=== PATIENT | male | born 1950 | race Caucasian/White ===

== ENCOUNTER → 2017-01-23 | Outpatient (CLI) | payer OTHER ==
--- NOTE | 2017-01-23 08:36 | US ---
EXAMINATION TYPE: US liver DATE OF EXAM: 01/23/2017 COMPARISON: Previous study dated 12/06/2010. CLINICAL HISTORY: R94.5 ABN Function Of Liver. No symptoms, large body habitus EXAM MEASUREMENTS: Liver Length: 21.2 cm Gallbladder Wall: 0.2 cm CBD: 0.7 cm Right Kidney: 11.5 x 6.3 x 5.8 cm Pancreas: not seen due to bowel gas Liver: enlarged and difficult to penetrate Gallbladder: wnl Evidence for sonographic Moon's sign: no CBD: upper limits of normal Right Kidney: wnl The pancreas is obscured. The liver is enlarged measuring 21 cm. It is echogenic and likely fatty infiltrated. The gallbladder is normal without cholelithiasis. The gallbladder wall measures 2 mm. The distal comm on hepatic duct measures 7 mm. This is upper limits of normal for this age group. There is no sonogra phic Moon's sign. The right kidney is normal. IMPRESSION: HEPATOMEGALY AND FATTY INFILTRATION OF THE LIVER.
== END | disposition home or self-care (01) ==
LOC: RADUSWWP 08:00
PROVIDERS: ATTEND Family Medicine
DX: R16.0 Hepatomegaly, not elsewhere classified (principal); K76.0 Fatty (change of) liver, not elsewhere classified
CPT/HCPCS: 76705

== ENCOUNTER → 2017-02-19 | Outpatient (CLI) | payer MEDICARE, BC | END | disposition home or self-care (01) | LOC: LABWHC1 09:30 | PROVIDERS: ATTEND Internal Medicine Interventional Cardiology | DX: I48.91 Unspecified atrial fibrillation (principal); Z79.899 Other long term (current) drug therapy | CPT/HCPCS: 36415; 84075; 84439; 84443; 84450; 84460 ==

== ENCOUNTER → 2017-03-19 | Outpatient (CLI) | payer MEDICARE, BC | END | disposition home or self-care (01) | LOC: CPPFTMAIN 13:08 | PROVIDERS: ATTEND Internal Medicine Interventional Cardiology | DX: Z79.899 Other long term (current) drug therapy (principal) | CPT/HCPCS: 94060; 94726; 94729 ==

== ENCOUNTER → 2019-02-15 | Outpatient (CLI) | payer MEDICARE ==
--- NOTE | 2019-02-15 17:52 | CONS ---
CONSULTATION REASON FOR CONSULTATION: Sleep apnea. This is a very pleasant 68-year-old male patient who was diagnosed having obstructive sleep apnea more than 10 years ago. His diagnosis was done through [facility]. He wants to establish himself with our [facility]. The patient was diagnosed having MONTY more than 10 years ago and currently is using a CPAP which is at the pressure of 12 cm of water. He has a ResMed AirSense unit which is set at a pressure of 12. He is also utilizing a Mirage Quattro full-face mask, medium size. He has no specific complaints. He has been very compliant with the CPAP unit. He has been wearing his CPAP every night. No snoring while on the CPAP machine. No apneas while on the CPAP machine. He goes to bed around 10 p.m., wakes up at 6 a.m. in the morning. He feels refreshed during the day and there are no major hypersomnia or sleepiness symptoms. He sleeps on his side. He occasionally takes a nap or two during the day. He drinks 3 glasses of caffeinated beverages on a daily basis. His weight has been stable, according to him. No sleep paralysis. No hallucinations. No cataplexy. Based on the compliance data on the machine, the patient has been using his CPAP machine every night without any major difficulties. His compliancy for more than 4 hours is 100%. Leak is 23 L/minute. AHI is down to 2.1 and the patient has been averaging around 7.8 hours of CPAP use per night. PAST MEDICAL HISTORY: 1. Obesity. 2. Obstructive sleep apnea. 3. Chronic atrial fibrillation. 4. Hyperlipidemia. 5. Coronary artery disease with previous coronary stenting. 6. BPH. 7. Diabetes mellitus, type 2. 8. Hypertension. SURGICAL HISTORY: Surgical history includes: 1. Left knee replacement in 2012. 2. Right knee cartilage repair in 1967. 3. Stapedectomy, both ears, in 1989. 4. Hand surgery, both hands, in 2009 and 2011. 5. Cardiac catheterization and stenting in 2000. 6. Umbilical hernia repair in 1989. 7. Colonoscopy in February of 2017. OUTPATIENT MEDICATION LIST: Outpatient medication list includes: 1. Metformin 1 gram twice a day. 2. Omeprazole 40 mg p.o. daily. 3. Lotrel 5/20 one tablet a day. 4. Metoprolol 100 mg p.o. daily. 5. Hytrin 5 mg p.o. b.i.d. 6. Pravastatin 20 mg p.o. daily. 7. Pioglitazone 15 mg p.o. daily. 8. Coumadin 10 mg on a daily basis. 9. Lantus 8 units daily. 10.Humalog per scale. SOCIAL HISTORY: The patient is a nonsmoker. No history of alcoholism. No history of IV drugs. FAMILY HISTORY: Positive for diabetes mellitus and hyperlipidemia and hypertension in parents. REVIEW OF SYSTEMS: Fourteen-point review of systems was done. Positive findings are all mentioned above in the history of present illness. Of significance is the absence of any nocturia. No grinding. No sleepwalking. No anxiety or panic attacks. No palpitations. No chest pain. No heartburn or nausea or vomiting or aerophagia or flatus. No chest pain, angina or palpitations. No cough or sputum production. No shortness of breath. No restlessness in the lower extremities. No sleepwalking or sleeptalking. No anxiety. No depression. No difficulty with memory or concentration. PHYSICAL EXAMINATION: VITAL SIGNS: BP is 120/77, pulse 76, respirations 16, temperature 98.1, saturation 95% on room air. Weight is 282. Height is 6 feet 0 inches. Neck size is 17-3/4 inches. [place] score is 16. BMI 38.2. GENERAL APPEARANCE: Calm, comfortable. HEAD: Atraumatic, normocephalic. NECK: Supple. There is no JVD. No goiter or neck mass. Mallampati class IV. LUNGS: Clear to auscultation. HEART: Heart sounds are irregular rhythm. Normal S1, S2. No S3, S4. No murmurs. ABDOMEN: Obese, soft, nontender. No organomegaly. No direct tenderness, rebound tenderness or guarding. EXTREMITIES: Trace edema. There is no cyanosis or clubbing. NEUROLOGIC: Alert and oriented x3. No focal neurological deficits. PSYCHIATRIC: There is no anxiety or depression. SKIN: Negative for any wounds or ulceration. IMPRESSION: 1. Obstructive sleep apnea. Currently on CPAP at a pressure of 12 with excellent clinical response and compliance. Original study was done at [facility]. Will receive the original polysomnogram to assess the presence and severity of his underlying obstructive sleep apnea. 2. Obesity. Current BMI 38.2. 3. Chronic atrial fibrillation. 4. Hyperlipidemia. 5. Coronary artery disease with previous coronary stenting. 6. Benign prostatic hypertrophy. 7. Diabetes mellitus, type 2. 8. Hypertension. PLAN: 1. Keep the CPAP pressure at the same level of pressure of 12 cm of water. 2. Offer this patient a DreamWear [id number]-[id number] full-face mask, medium size. 3. Renew his CPAP supplies. The patient is interested in moving from [place] to another [facility] which [place], and we will facilitate that. 4. Encourage weight loss. 5. Implement good sleep hygiene measures. Will continue to follow and see him on a yearly basis, earlier if needed. MMODL / IJN: [id number] /
== END ==
LOC: SLEEP 14:13
PROVIDERS: ATTEND Internal Medicine Critical Care Medicine
DX: G47.33 Obstructive sleep apnea (adult) (pediatric) (principal); E66.9 Obesity, unspecified; I48.2 Chronic atrial fibrillation; E78.5 Hyperlipidemia, unspecified; I25.10 Atherosclerotic heart disease of native coronary artery without angina pectoris; N40.0 Benign prostatic hyperplasia without lower urinary tract symptoms; E11.9 Type 2 diabetes mellitus without complications; I10 Essential (primary) hypertension; Z68.38 Body mass index [BMI] 38.0-38.9, adult; Z95.5 Presence of coronary angioplasty implant and graft; Z99.89 Dependence on other enabling machines and devices; Z79.899 Other long term (current) drug therapy; Z79.4 Long term (current) use of insulin; Z79.01 Long term (current) use of anticoagulants
CPT/HCPCS: 99211

== ENCOUNTER 2020-03-15 06:02 | Day surgery (SDC) | payer MEDICARE ==
[2020-03-09 15:35] VITALS: BMI 33.9
[~2020-03-15 06:02] MED LIST: LACTATED RINGERS 1,000 ML IV SCH; SODIUM CHLORIDE 0.9% 1,000 ML IV SCH
[2020-03-15] MEDS ORDERED: SODIUM CHLORIDE 0.9% 1,000 ML IV ONE ×2 (06:18→12:58)
[2020-03-15 06:28] LABS: Glucose,Whole Blood 151 mg/dL (75-99)
[2020-03-15 06:35] LABS: INR 2.6 (<1.2); Prothrombin Time 25.5 sec (9.0-12.0)
[2020-03-15] MEDS ORDERED: NEOSTIGMINE 1 MG/ML 10 ML VIAL ONE (07:15)
[2020-03-15] MEDS ORDERED: FUROSEMIDE 10 MG/ML 2 ML VIAL ONE (07:15)
[2020-03-15] MEDS ORDERED: SUCCINYLCHOLINE CHLORIDE VIAL 200 MG/10 ML VIAL IV ONE (07:15)
[2020-03-15] MEDS ORDERED: HEPARIN SODIUM,PORCINE 10,000 UNIT/ML 1 ML VIAL ONE (07:15)
[2020-03-15] MEDS ORDERED: MIDAZOLAM 2 MG/2 ML VIAL ONE (07:15)
[2020-03-15] MEDS ORDERED: PHENYLEPHRINE-0.9% NACL SYG 1 MG/10 ML SYRINGE ONE (07:15)
[2020-03-15] MEDS ORDERED: PROPOFOL 10 MG/ML 20 ML VIAL IV ONE (07:15)
[2020-03-15] MEDS ORDERED: fentaNYL (PF) 50 MCG/ML 2 ML AMP ONE (07:15)
[2020-03-15] MEDS ORDERED: GLYCOPYRROLATE 0.2 MG/ML 2 ML VIAL ONE (07:15)
[2020-03-15] MEDS ORDERED: LIDOCAINE 1% INJ 10MG/ML (20 ML MDV) ONE ×2 (07:15→07:32)
[2020-03-15] MEDS ORDERED: PROTAMINE SULFATE 10 MG/ML 5 ML VIAL IV ONE ×2 (07:15→12:44)
[2020-03-15] MEDS ORDERED: HEPARIN SODIUM 1,000 UN/ML (10ML VL) ONE (07:32)
--- NOTE | 2020-03-15 08:00 | P.HPCAR ---
History of Present Illness This is Dr. Munoz dictating an H/P on this patient The patient was interviewed and examined IMPRESSION / ASSESSMENT: Long-standing persistent atrial fibrillation, presenting with progressive tiredness and fatigue recently Left atrial enlargement Coronary artery disease status post coronary stenting Mild LV systolic dysfunction ejection fraction 45% Failed amiodarone and electrical cardioversion several years back Diabetes type 2 GFR 55 creatinine 1.3 PLAN: Proceed with A. fib ablation Continue anticoagulation HPI Patient complains of tiredness and fatigue progressively He has atrial fibrillation which is rate controlled on beta blockers Left ventricle ejection fraction 45% Denies any chest discomfort or shortness of breath at rest Orthopnea PND No fever chills and cough ROS: No fever chills or rigors, no cough, phlegm or expectoration, no nausea, vomiting or diarrhea, no hematuria, dysuria, no musculoskeletal complaints, no strokes or seizures, no skin lesions. EXAMINATION: Afebrile 90F pulse rate in the 90s blood pressure 173/96 pulse ox 95% on room air Breath sounds are clear no rhonchi no crackles Orthopnea Heart sounds are irregular with normal no murmurs Abdomen is soft Extremity is warm no edema REVIEW OF LABS, ECG & MEDICAL DATA TSH 4.4, INR 2.6 today Medications reviewed Coumadin, invoke Penny, insulin, Lotrel, metformin, metoprolol tartrate 75 mg 3 times a day Omeprazole, Pravachol, terazosin Physical Exam Vitals: Vital Signs Temp Pulse Resp BP Pulse Ox 03/15/20 06:29 98 F 91 16 173/96 95 Intake and Output 03/14/20 03/15/20 03/15/20 22:59 06:59 14:59 Intake Total 100 Balance 100 Intake: IV 100 Other: Weight 114.5 kg Past Medical History Past Medical History: Atrial Fibrillation, Diabetes Mellitus, GERD/Reflux, Hyperlipidemia, Hypertension, Sleep Apnea/CPAP/BIPAP Additional Past Medical History / Comment(s): uses CPAP, see Dr Munoz H & P History of Any Multi-Drug Resistant Organisms: None Reported Past Surgical History: Heart Catheterization With Stent, Hernia Repair, Joint Replacement, Orthopedic Surgery, Tonsillectomy Additional Past Surgical History / Comment(s): linnette hand surgery, umbilical hernia, linnette stapedectomy, left knee replacement, rt knee surgery, failed cardioversion Past Anesthesia/Blood Transfusion Reactions: No Reported Reaction Date of Last Stent Placement:: 2001 Smoking Status: Never smoker - Past Family History Father Family Medical History: Cancer, Deep Vein Thrombosis (DVT) Physical Examination Vital Signs Temp Pulse Resp BP Pulse Ox 03/15/20 06:29 98 F 91 16 173/96 95 Intake and Output 03/14/20 03/15/20 03/15/20 22:59 06:59 14:59 Intake Total 100 Balance 100 Intake: IV 100 Other: Weight 114.5 kg Results Coagulation 03/15/20 Range/Units 06:15 PT 25.5 H (9.0-12.0) sec Current Medications Generic Name Dose Route Start Last Admin Trade Name Freq PRN Reason Stop Dose Admin Lactated Ringer's 1,000 mls @ 20 mls/hr 03/15/20 05:54 Lactated Ringers IV .Q24H VANESSA Sodium Chloride 1,000 mls @ 50 mls/hr 03/15/20 05:54 Saline 0.9% IV .Q20H VANESSA Intake and Output 03/14/20 03/15/20 03/15/20 22:59 06:59 14:59 Intake Total 100 Balance 100 Intake: IV 100 Other: Weight 114.5 kg
[2020-03-15] MEDS ORDERED: LIDOCAINE 1% INJ 10MG/ML (20 ML MDV) SQ ONE (08:33)
[2020-03-15] MEDS ORDERED: HEPARIN SOD,PORK IN 0.45% NACL 25,000 UNIT in 0.45% NACL 1 250ML.BAG IV ONE ×2 (08:34)
[2020-03-15] MEDS ORDERED: HEPARIN SODIUM (1,000 UNIT/ML) 1,000 UNIT in SODIUM CHLORIDE 0.9% 1,000 ML IRRIGATION ONE ×4 (08:34)
[2020-03-15 09:20] LABS: Calcium 8.5 mg/dL (8.4-10.2); Magnesium 1.8 mg/dL (1.6-2.3); Potassium 4.9 mmol/L (3.5-5.1)
[2020-03-15] MEDS ORDERED: ACETAMINOPHEN TAB 325 MG TAB PO PRN (12:56)
[2020-03-15] MEDS ORDERED: HYDROcodone/APAP 5-325MG 1 EACH TAB PO PRN (12:56)
[2020-03-15] MEDS ORDERED: IOPAMIDOL-370 100ML BTL INJ ONE (12:57)
--- NOTE | 2020-03-15 13:11 | P.PCN ---
Preoperative Diagnosis: Diagnosis Atrial fibrillation, symptomatic, refractory to therapy, persistent Refractory to amiodarone failed electrical cardioversions, Result No left atrial appendage mass seen on intracardiac echo Large common left sided veins Large right inferior pulmonary vein Successful pulmonary vein isolation of all veins using cryo-ablation Complete entrance block in all 4 veins confirmed No evidence for phrenic nerve injury Esophageal deflection YES Linear ablation left atrial roof Linear ablation anterior septum Organization to mitral reentry Linear ablation mitral isthmus with termination of mitral reentry Bidirectional block across mitral isthmus proven with differential pacing Procedure details Patient was brought to the EP lab in a fasting state. Written informed consent was obtained prior to the procedure. Procedure performed under general anesthesia After initial muscle relaxant use, muscle relaxants were not given thereafter in order to assess phrenic nerve during procedure. Patient prepped and draped as per protocol Full cryo-set up with standard preparation of the cryoablation tools done. Femoral Venous access obtained on the right and left groins Venous and arterial Sheaths placed. Diagnostic catheters for the high right atrium, phrenic nerve stimulation and pacing, His bundle, RV and coronary sinus placed Intracardiac echo catheter placed. Long sheath placed in the right atrium Left and right transseptal catheterization performed under intracardiac echo guidance. Intravenous heparin with aCT above 300 Later, catheter positioning and balloon positioning in the left atrium, under intracardiac echo guidance Diagnostic EP study with Coronary sinus pacing and recording Baseline measurements Sinus cycle length 557 ms, QRS 97 ms, SC interval 174 ms Transseptal catheterization performed RA pressure 16/10/13 LA pressure 23/5/17 Transseptal catheterization performed with standard sheath. The cryoablation sheath was then placed with an over the wire exchange without any acute complications. All 4 pulmonary veins were isolated in the following sequence: Left superior followed by left inferior followed by right superior followed by right inferior The cryo-ablation balloon was placed at the os of each vein 1.5 mL of IV dye was injected to confirm an occluded vein Goal during cryoablation was to achieve complete occlusion of the pulmonary vein, achieve -30 degrees C at 30 seconds and achieve -40 degrees C at 60 seconds and a time to effect of less than 60-90 seconds, . If not the balloon was repositioned to obtain this result After completion of Cryoblation with durations from 180-240 seconds, entrance block was confirmed with the Attain circular catheter in a roving fashion around the antrum of the pulmonary veins Phrenic nerve pacing was performed from the SVC, right innominate vein area and diaphragm voltage was monitored. Diaphragmatic contractions were also monitored manually for strength of contraction. Parameter goals for each cryo freeze Complete occlusion of the appropriate vein -30 degrees C by 30 seconds -40 degrees C by 60 seconds Minimum between minus 40-55 degrees C Thaw time greater than 10 seconds Balloon visualized by intracardiac echo The esophagus was intubated. Esophageal Temperature monitoring with a CIRCA catheter formed. Esophageal deflection for hypothermia of the esophagus below 30 degrees C Left superior pulmonary vein Complete isolation, entrance block Left inferior pulmonary vein Complete isolation, entrance block Right superior pulmonary vein, during phrenic nerve pacing Complete isolation, entrance block Right inferior pulmonary vein, during phrenic nerve pacing Complete isolation, entrance block At the end of the procedure the Achieve catheter was once again used to check for entrance block Phrenic nerve stimulation was performed to confirm diaphragmatic stimulation the end of the procedure Cine fluoroscopy was performed at the very end of the procedure to confirm movement of both diaphragms with inspiration and expiration Fractionation is noted along the roof line 3-D electro-anatomic mapping was performed The pulmonary veins were completely quiescent A linear ablation was performed along the anterior roof A complete anatomic line of block was made Linear ablation was performed along the very fractionated septum just behind the transseptal hunches site This is connected to the roof line and to the right inferior pulmonary vein This resulted in organization into an atrial tachycardia Entrainment mapping was performed from the chemo tricuspid isthmus and the mitral isthmus and along the coronary sinus Activation mapping was performed Mitral reentry was confirmed Linear ablation was performed along the mitral isthmus with termination of the tachycardia Following that bidirectional block was proven with differential pacing across this RF line At the end of the procedure the patient was extubated Heparin was reversed Venous sheaths were removed and hemostasis assured Procedures performed (PVI - CRYO Ablation) Diagnostic EP study CS pacing and recording Left and right transseptal catheterization 3D mapping) Intracardiac echocardiography Pulmonary vein isolation with transseptal and comprehensive EPS, [id number] Left atrial roof line, +[id number] Linear ablation, septum of the left atrium, +[id number] Linear ablation mitral isthmus for mitral reentry, +[id number]
--- NOTE | 2020-03-15 13:13 | P.PRLE ---
RE: Samuel Uriarte Dear Gauri Mr. Gaytan underwent a diagnostic EP study in A. fib ablation With a stepwise approach involving the pulmonary veins, roof of the left atrium, anterior septum and finally the mitral isthmus, his atrial fibrillation was terminated with RF ablation. Hopefully he remains in sinus rhythm now Coumadin to be continued lifelong Thank you for entrusting me with the care of the patient Warm regards Sincerely Alberto Munoz
[2020-03-15 13:45] LABS: Glucose,Whole Blood 154 mg/dL (75-99)
[2020-03-15] MEDS ORDERED: ACETAMINOPHEN IV (For NPO) 1,000 MG in EMPTY BAG 1 BAG IVPB ONE (14:00)
[2020-03-15 16:32] VITALS: RESP 18
[2020-03-15 17:04] LABS: Glucose,Whole Blood 141 mg/dL (75-99)
[2020-03-15] MEDS: METOPROLOL SUCCINATE (ER) 25 MG TAB.ER.24H PO SCH ×2 (17:05→20:59)
[2020-03-15] MEDS ORDERED: WARFARIN 10 MG TAB PO SCH (18:00)
[2020-03-15] MEDS ORDERED: DOXAZOSIN 4 MG TAB PO SCH (21:00)
[2020-03-15] MEDS ORDERED: PANTOPRAZOLE 40 MG TABLET PO SCH (21:00)
[2020-03-15] MEDS ORDERED: PRAVASTATIN SODIUM 20 MG TAB PO SCH (21:00)
[2020-03-15 21:01] LABS: Glucose,Whole Blood 138 mg/dL (75-99)
[2020-03-15] MEDS ORDERED: DILTIAZEM 125 MG in SODIUM CHLORIDE 0.9% 100 ML IV SCH (23:25)
[2020-03-15] MEDS ORDERED: DEXTROSE 5% IN WATER 100 ML with AMIODARONE 150 MG IV ONE (23:40)
[2020-03-16 06:13] LABS: Glucose,Whole Blood 133 mg/dL (75-99)
--- NOTE | 2020-03-16 07:50 | P.DS ---
Providers Attending physician: Alberto Munoz Primary care physician: [facility] Course: Patient is doing well. No chest discomfort he does have sore throat no dizziness lightheadedness. He sitting comfortably in a chair groins are sore but there is no hematoma Sutures have been removed Patel catheter has been removed On examination his vitals are stable Blood pressure is normal Heart rates are normal Last night he had an episode of what appeared to be atrial tachycardia, brief episode. I give him IV amiodarone a one-time bolus dose only over 1 hour Heart sounds today are normal no murmurs no gallops Breath sounds are clear no rhonchi no crackles Abdomen soft Next 70s are warm Groin to feel well no hematoma Impression atrial fibrillation, persistent Status post PVI status post kidney and ablation of the roof, septum and finally the mitral annulus with termination of atrial fibrillation Plan Continue Coumadin Reduce metoprolol to 75 mg twice daily Continue other medications to have a follow-up with Dr. Astudillo within one week Discharge home at 5 PM today Plan - Discharge Summary Discharge Rx Participant: Yes New Discharge Prescriptions: New Metoprolol Succinate [Toprol XL] 75 mg PO DAILY #180 tab Discontinued Metoprolol Succinate (ER) [Toprol Xl] 75 mg PO TID No Action Warfarin [Coumadin] 10 mg PO DAILY Terazosin [Hytrin] 5 mg PO HS Pravastatin Sodium [Pravachol] 20 mg PO HS metFORMIN HCL 1,000 mg PO BID Omeprazole 40 mg PO HS Pioglitazone [Actos] 15 mg PO DAILY Semaglutide [Ozempic] 1 mg SQ TU Canagliflozin [Invokana] 300 mg PO DAILY Discharge Medication List Omeprazole 40 mg PO HS 03/27/14 [History] Pravastatin Sodium [Pravachol] 20 mg PO HS 03/27/14 [History] Terazosin [Hytrin] 5 mg PO HS 03/27/14 [History] Warfarin [Coumadin] 10 mg PO DAILY 03/27/14 [History] metFORMIN HCL 1,000 mg PO BID 03/27/14 [History] Canagliflozin [Invokana] 300 mg PO DAILY 12/15/19 [History] Pioglitazone [Actos] 15 mg PO DAILY 12/15/19 [History] Semaglutide [Ozempic] 1 mg SQ TU 12/15/19 [History] Metoprolol Succinate [Toprol XL] 75 mg PO DAILY #180 tab 03/16/20 [Rx] Follow up Appointment(s)/Referral(s): Leila Astudillo MD [STAFF PHYSICIAN] - 1 Week (Discharge by 5 PM Follow-up with Dr. Astudillo within a week Reduce metoprolol to 75 mg twice daily Continue all other medications, continue Coumadin Ambulate in the hallways prior to discharge) Activity/Diet/Wound Care/Special Instructions: Post EP study - Ablation instructions 1. Keep access sites dry for 2 days. 2. No heavy lifting or straining for 2 days. 3. Avoid bending the hips repeatedly for 2 days. 4. You may go up and down stairs slowly Call if the following is noted 1. Bleeding, increasing swelling or pain at the access sites. 2. Increasing chest discomfort, especially upon taking a deep breath. 3. Increasing shortness of breath, at rest or with exertion. 4. Undue cough / phlegm 5. Difficulty or pain while swallowing. 6. Pain or change in color in the extremities. 7. Fever, chills, rigors. 8. Increasing headache or neurologic symptoms. 9. Dizziness, fainting, palpitations Discharge Disposition: HOME SELF-CARE
[2020-03-16] MEDS ORDERED: PIOGLITAZONE 15 MG TAB PO SCH (09:00)
[2020-03-16] MEDS: METOPROLOL SUCCINATE (ER) 25 MG TAB.ER.24H PO SCH (09:43)
[2020-03-16 11:51] LABS: Glucose,Whole Blood 138 mg/dL (75-99)
[2020-03-16 13:48] VITALS: BP 155/89; PULSE 85; TEMP 97.6
[2020-03-16 17:22] LABS: Glucose,Whole Blood 122 mg/dL (75-99)
[2020-03-16] MEDS ORDERED: METOPROLOL SUCCINATE (ER) 25 MG TAB.ER.24H PO SCH (21:00)
[2020-03-17] MEDS ORDERED: metFORMIN 500 MG TAB PO SCH (17:30)
== END 2020-03-16 17:16 | disposition home or self-care (01) ==
LOC: CATHEP 06:02 → 3SCARD 13:46 → CATHEP 03-16 17:16
PROVIDERS: ATTEND Internal Medicine Clinical Cardiac Electrophysiology
DX: I48.11 Longstanding persistent atrial fibrillation (principal); I11.9 Hypertensive heart disease without heart failure; I25.10 Atherosclerotic heart disease of native coronary artery without angina pectoris; Z95.5 Presence of coronary angioplasty implant and graft; E11.9 Type 2 diabetes mellitus without complications; K21.9 Gastro-esophageal reflux disease without esophagitis; E78.5 Hyperlipidemia, unspecified; G47.30 Sleep apnea, unspecified; Z99.89 Dependence on other enabling machines and devices; I25.2 Old myocardial infarction; Z96.652 Presence of left artificial knee joint; Z98.890 Other specified postprocedural states; Z82.49 Family history of ischemic heart disease and other diseases of the circulatory system; M19.90 Unspecified osteoarthritis, unspecified site; Z79.01 Long term (current) use of anticoagulants; Z79.4 Long term (current) use of insulin; Z79.899 Other long term (current) drug therapy
CPT/HCPCS: 85347; 93662; 93613; 93656; 80048; 83735; 84443; 85610; C1769 ×4; C1894; C1759; C1893; C1733; C1766; C1730; C1732; J2250; J0330; J2720; J1644 ×3; J1940; J2710; J0282; J2001; J3010; J2370; J2704; Q9967

== ENCOUNTER 2020-05-28 12:38 | Day surgery (SDC) | payer MEDICARE ==
[2020-05-25 11:19] VITALS: BMI 33.0
[~2020-05-28 12:38] MED LIST changes: +HYDROmorphone 0.5 MG/0.5 ML SYRINGE IVP PRN; -LACTATED RINGERS 1,000 ML IV SCH; +MIDAZOLAM 2 MG/2 ML VIAL IV PRN; -SODIUM CHLORIDE 0.9% 1,000 ML IV SCH
[2020-05-28 13:22] LABS: Glucose,Whole Blood 105 mg/dL (75-99)
[2020-05-28] MEDS ORDERED: SODIUM CHLORIDE 0.9% 1,000 ML IV ONE (13:27)
[2020-05-28 14:19] LABS: INR 2.1 (<1.2); Prothrombin Time 20.2 sec (9.0-12.0)
[2020-05-28] MEDS ORDERED: NEOSTIGMINE 1 MG/ML 10 ML VIAL ONE (15:04)
[2020-05-28] MEDS ORDERED: GLYCOPYRROLATE 0.2 MG/ML 2 ML VIAL ONE (15:04)
[2020-05-28] MEDS ORDERED: ePHEDrine SULFATE/0.9% NACL/PF 50 MG/5 ML SYRINGE IV ONE (15:04)
[2020-05-28] MEDS ORDERED: ISOPROTERENOL 250 MCG/1.25 ML SYR IV ONE (15:04)
[2020-05-28] MEDS ORDERED: SUCCINYLCHOLINE CHLORIDE 100 MG/5 ML SYR IV ONE (15:04)
[2020-05-28] MEDS ORDERED: MIDAZOLAM 2 MG/2 ML VIAL ONE (15:04)
[2020-05-28] MEDS ORDERED: ROCURONIUM 10 MG/ML (10 ML VIAL) IV ONE (15:04)
[2020-05-28] MEDS ORDERED: PROPOFOL 10 MG/ML 20 ML VIAL IV ONE (15:04)
[2020-05-28] MEDS ORDERED: PHENYLEPHRINE-0.9% NACL SYG 1 MG/10 ML SYRINGE ONE (15:04)
[2020-05-28] MEDS ORDERED: HEPARIN SODIUM,PORCINE 5,000 UNIT/ML 1 ML VIAL ONE (15:04)
[2020-05-28] MEDS ORDERED: fentaNYL (PF) 50 MCG/ML 2 ML AMP ONE (15:04)
[2020-05-28] MEDS ORDERED: LIDOCAINE 1% INJ 10MG/ML (20 ML MDV) ONE (15:23)
[2020-05-28] MEDS ORDERED: LIDOCAINE URO-JET JELLY 2% 5 ML KIT ONE (15:29)
[2020-05-28] MEDS ORDERED: LIDOCAINE 1% INJ 10MG/ML (20 ML MDV) SQ ONE (15:59)
[2020-05-28] MEDS ORDERED: HEPARIN SODIUM (1,000 UNIT/ML) 1,000 UNIT in SODIUM CHLORIDE 0.9% 1,000 ML IRRIGATION ONE ×2 (16:35→18:15)
[2020-05-28] MEDS ORDERED: HYDROcodone/APAP 5-325MG 1 EACH TAB PO PRN (17:59)
[2020-05-28] MEDS ORDERED: ACETAMINOPHEN TAB 325 MG TAB PO PRN (17:59)
--- NOTE | 2020-05-28 18:04 | P.PRLE ---
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 Astudillo as before Thank you for entrusting me with the care of the patient Warm regards Sincerely Alberto Munoz
[2020-05-28] MEDS ORDERED: ACETAMINOPHEN IV (For NPO) 1,000 MG in EMPTY BAG 1 BAG IVPB ONE (19:00)
[2020-05-28 19:31] LABS: Glucose,Whole Blood 106 mg/dL (75-99)
[2020-05-28] MEDS: METOPROLOL SUCCINATE (ER) 50 MG TAB.ER.24H PO SCH (20:26)
[2020-05-28] MEDS: amLODIPine 5 MG TAB PO SCH (20:27)
[2020-05-28] MEDS: metFORMIN 500 MG TAB PO SCH (20:27)
[2020-05-28] MEDS: lisinopriL 20 MG TAB PO SCH (20:27)
[2020-05-28 20:28] LABS: Glucose,Whole Blood 100 mg/dL (75-99)
[2020-05-28] MEDS ORDERED: WARFARIN 10 MG TAB PO SCH (20:30)
[2020-05-28] MEDS ORDERED: DOXAZOSIN 4 MG TAB PO SCH (21:00)
[2020-05-28] MEDS ORDERED: PANTOPRAZOLE 40 MG TABLET PO SCH (21:00)
[2020-05-28] MEDS ORDERED: PRAVASTATIN SODIUM 20 MG TAB PO SCH (21:00)
--- NOTE | 2020-05-28 21:58 | CE ---
CARDIAC ELECTROPHYSIOLOGY REPORT Mr. Uriarte is a 69-year-old male patient who has undergone atrial fibrillation ablation in the past with successful isolation of all 4 pulmonary veins, septal ablation in the left atrium, linear ablation in the left atrial roof, and successful ablation of mitral isthmus reentry with termination and demonstration of bidirectional block. He came into the office once again with an atrial tachycardia with RVR despite high- dose beta blockers, and he was brought into the EP lab once again. He is on Coumadin. INR 2.1. The patient was brought to the EP lab in a fasting state. Written informed consent was obtained prior to the procedure. He came in with an atrial tachycardia with a ventricular rate of 122 beats per minute at rest. The procedure was performed under general anesthesia. Venous sheaths were placed in the right and left femoral veins, and via these mapping and ablation catheters were placed. Coronary sinus electrograms revealed concentric activation. A mapping catheter was placed in the right atrium and 3D electroanatomic mapping of the right atrium was performed. Counter-clockwise typical atrial flutter was demonstrated by activation mapping. An RF line of block was made in the cavotricuspid isthmus with termination of the tachycardia. Intracardiac echocardiography was performed. The isthmus was identified. A shallow pouch was noted in the isthmus towards the IVC. A complete line of block was made. With pacing maneuvers, bidirectional block was proven. Following that, high-dose Isuprel was employed and no atrial fibrillation or atrial tachycardia could be induced again. The venous sheaths were removed and the Vascade venous vascular closure device was used on all the punctures successfully. The patient tolerated the procedure well without any acute complications. PLAN: Continue cardiac medications and continue Coumadin and follow up with Dr. Astudillo in a week. MMODL / IJN: [id number] /
[2020-05-28] MEDS: LACTATED RINGERS 1,000 ML IV SCH (23:00)
[2020-05-28] MEDS: SODIUM CHLORIDE 0.9% 1,000 ML IV SCH (23:01)
[2020-05-29 05:23] LABS: Glucose,Whole Blood 109 mg/dL (75-99)
[2020-05-29] MEDS: LACTATED RINGERS 1,000 ML IV SCH (06:31)
[2020-05-29] MEDS: SODIUM CHLORIDE 0.9% 1,000 ML IV SCH (06:31)
[2020-05-29] MEDS: ONDANSETRON 4 MG/2 ML VIAL IVP PRN ×2 (06:33→16:30)
[2020-05-29 08:02] VITALS: RESP 16
[2020-05-29] MEDS ORDERED: PIOGLITAZONE 15 MG TAB PO SCH (09:00)
[2020-05-29] MEDS ORDERED: PANTOPRAZOLE 40 MG/10 ML VIAL IVP SCH (09:00)
[2020-05-29] MEDS ORDERED: NON FORMULARY DRUG (Canagliflozin [Invokana] 300 MG Tablet) PO SCH (09:00)
[2020-05-29] MEDS: metFORMIN 500 MG TAB PO SCH (09:03)
[2020-05-29] MEDS: METOPROLOL SUCCINATE (ER) 50 MG TAB.ER.24H PO SCH (09:04)
[2020-05-29] MEDS: amLODIPine 5 MG TAB PO SCH (09:04)
[2020-05-29] MEDS: lisinopriL 20 MG TAB PO SCH (09:04)
[2020-05-29 09:55] LABS: Basophils % (A) 1 %; Eosinophils % (A) 0 %; HCT 45.1 % (39.0-53.0); HGB 15.1 gm/dL (13.0-17.5); Lymphocytes # (A) 0.6 k/uL (1.0-4.8); Lymphocytes % (A) 9 %; MCH 30.4 pg (25.0-35.0); MCHC 33.5 g/dL (31.0-37.0); MCV 90.8 fL (80.0-100.0); Mean Platelet Volume 8.4; Monocytes # (A) 0.4 k/uL (0-1.0); Monocytes % (A) 7 %; Neutrophils # (A) 5.1 k/uL (1.3-7.7); Neutrophils % (A) 82 %; Platelet Count 118 k/uL (150-450); RBC 4.97 m/uL (4.30-5.90); RDW 13.7 % (11.5-15.5); WBC 6.3 k/uL (3.8-10.6)
[2020-05-29 10:07] LABS: INR 2.3 (<1.2); Prothrombin Time 22.1 sec (9.0-12.0)
[2020-05-29 10:16] LABS: Calcium 8.5 mg/dL (8.4-10.2); Potassium 4.4 mmol/L (3.5-5.1)
--- NOTE | 2020-05-29 10:53 | XR ---
EXAMINATION TYPE: XR chest 2V DATE OF EXAM: 05/29/2020 COMPARISON: 12/03/2012 HISTORY: Shortness of breath TECHNIQUE: Frontal and lateral views of the chest are obtained. FINDINGS: Scattered senescent parenchymal changes noted. Hyperinflation compatible with COPD. No evidence for infiltrate. No evidence for atelectasis. Heart size is stable. Mediastinal structures are stable and grossly unremarkable. No evidence for hilar prominence. Degenerative changes dorsal spine. IMPRESSION: 1. No evidence for acute pulmonary disease.
[2020-05-29 12:38] LABS: Glucose,Whole Blood 102 mg/dL (75-99)
[2020-05-29 15:23] VITALS: TEMP 98.3
[2020-05-29 16:25] LABS: Glucose,Whole Blood 124 mg/dL (75-99)
[2020-05-29 16:29] VITALS: BP 147/80; PULSE 98
[2020-05-29] MEDS ORDERED: PANTOPRAZOLE 40 MG TABLET PO SCH (17:30)
== END 2020-05-29 17:07 | disposition home or self-care (01) ==
LOC: CATHEP 12:38 → 3NCARDOBS 18:13 → CATHEP 05-29 17:07
PROVIDERS: ATTEND Internal Medicine Clinical Cardiac Electrophysiology
DX: I47.1 Supraventricular tachycardia (principal); I44.2 Atrioventricular block, complete; I48.11 Longstanding persistent atrial fibrillation; I25.10 Atherosclerotic heart disease of native coronary artery without angina pectoris; I10 Essential (primary) hypertension; E78.5 Hyperlipidemia, unspecified; E78.00 Pure hypercholesterolemia, unspecified; E11.9 Type 2 diabetes mellitus without complications; Z82.49 Family history of ischemic heart disease and other diseases of the circulatory system; Z95.5 Presence of coronary angioplasty implant and graft; Z79.01 Long term (current) use of anticoagulants; Z79.84 Long term (current) use of oral hypoglycemic drugs; Z79.899 Other long term (current) drug therapy
CPT/HCPCS: 93623; 93662; 93613; 93653; 80048; 84132; 85025; 85610 ×2; 71046; C1894; C1769 ×2; C1760; C1730; C1759; C1893; C1732; J2250; J1644 ×2; J2710; J2405; J2001; J3010; J2370; J0330; J2704; C9113

== ENCOUNTER 2020-12-24 11:37 | Day surgery (SDC) | payer MEDICARE ==
[2020-12-21 09:07] VITALS: BMI 33.0
[~2020-12-24 11:37] MED LIST changes: -HYDROmorphone 0.5 MG/0.5 ML SYRINGE IVP PRN; -MIDAZOLAM 2 MG/2 ML VIAL IV PRN; +SODIUM CHLORIDE 0.9% 1,000 ML IV SCH
[2020-12-24 12:16] LABS: Glucose,Whole Blood 134 mg/dL (75-99)
[2020-12-24 12:48] LABS: INR 2.7 (<1.2); Prothrombin Time 26.5 sec (9.0-12.0)
[2020-12-24] MEDS ORDERED: LIDOCAINE 1% INJ 10MG/ML (20 ML MDV) ONE ×2 (14:01→14:04)
[2020-12-24] MEDS ORDERED: ROCURONIUM 10 MG/ML (5 ML VIAL) IV ONE (14:04)
[2020-12-24] MEDS ORDERED: PROPOFOL 10 MG/ML 20 ML VIAL IV ONE (14:04)
[2020-12-24] MEDS ORDERED: HEPARIN SODIUM,PORCINE 10,000 UNIT/ML 1 ML VIAL ONE (14:04)
[2020-12-24] MEDS ORDERED: NEOSTIGMINE 1 MG/ML 10 ML VIAL ONE (14:04)
[2020-12-24] MEDS ORDERED: ISOPROTERENOL 250 MCG/1.25 ML SYR IV ONE (14:04)
[2020-12-24] MEDS ORDERED: GLYCOPYRROLATE 0.2 MG/ML 2 ML VIAL ONE (14:04)
[2020-12-24] MEDS ORDERED: MIDAZOLAM 2 MG/2 ML VIAL ONE (14:04)
[2020-12-24] MEDS ORDERED: SUCCINYLCHOLINE CHLORIDE VIAL 200 MG/10 ML VIAL IV ONE (14:04)
[2020-12-24] MEDS ORDERED: fentaNYL (PF) 50 MCG/ML 2 ML AMP ONE (14:04)
[2020-12-24] MEDS ORDERED: PHENYLEPHRINE-0.9% NACL SYG 1,000 MCG/10 ML SYRINGE ONE (14:04)
[2020-12-24] MEDS ORDERED: PROTAMINE SULFATE 10 MG/ML 5 ML VIAL IV ONE ×2 (14:04→17:56)
[2020-12-24] MEDS ORDERED: HEPARIN SOD,PORK IN 0.45% NACL 25,000 UNIT in 0.45% NACL 1 250ML.BAG IV ONE ×2 (15:00)
[2020-12-24] MEDS ORDERED: LACTATED RINGERS 1,000 ML IV ONE (17:17)
[2020-12-24] MEDS ORDERED: HEPARIN SODIUM (1,000 UNIT/ML) 1,000 UNIT in SODIUM CHLORIDE 0.9% 1,000 ML IRRIGATION ONE (18:07)
[2020-12-24] MEDS ORDERED: HYDROcodone/APAP 5-325MG 1 EACH TAB PO PRN (18:09)
[2020-12-24] MEDS ORDERED: ACETAMINOPHEN TAB 325 MG TAB PO PRN (18:09)
--- NOTE | 2020-12-24 18:15 | P.PRLE ---
RE: ChapitoSamuel Eckert Dear Garui Mr. Uriarte presented with an atrial tachycardia and he underwent mapping and ablation in the left atrial roof. There was a very small Which had developed in the previously made left atrial roof line and his clinical tachycardia was terminated. Thereafter a second focal atrial tachycardia was induced and then mapped to the anterior left atrium, close the mitral annulus, 10 o'clock position Successful ablation in termination of the tachycardia was performed Hopefully this results in long-term maintenance of sinus rhythm He will continue warfarin as well as the other cardiac medications and will continue to follow with you and Dr. Astudillo as before Thank you for entrusting me with the care of the patient Warm regards Sincerely Alberto Munoz
[2020-12-24] MEDS ORDERED: ACETAMINOPHEN IV (For NPO) 1,000 MG in EMPTY BAG 1 BAG IVPB ONE (18:30)
[2020-12-24] MEDS ORDERED: WARFARIN 10 MG TAB PO SCH (19:00)
--- NOTE | 2020-12-24 19:00 | CE ---
CARDIAC ELECTROPHYSIOLOGY REPORT This is a 70-year-old male patient who has undergone atrial fibrillation ablation with pulmonary vein isolation and atrial flutter ablation, lead ablation left atrial roof, septal ablation in the left atrium and mitral isthmus ablation with termination of atrial fibrillation. He came in with recurrence but had 2:1 atrial tachycardia. He was brought in for an EP study and radiofrequency ablation of atrial tachycardia. The patient is brought to the EP lab in a fasting state. Written informed consent was obtained prior to the procedure. The right and left groins were prepped and draped as per protocol. 1% lidocaine was used for local anesthesia. Venous sheaths were placed in the right and left femoral veins. The procedure was performed under general anesthesia. The coronary sinus catheter was placed. Intracardiac echo catheter was placed. Later the high right atrial catheter, His bundle catheter, RV catheter were placed for the EP study. Initially a PentaRay catheter was placed in the right atrium and activation mapping in the right atrium was performed. However, the tachycardia focus was not in the right atrium and therefore left to right transseptal catheterization was performed under intracardiac echo guidance. RA pressure 19 x 14 x 16 mmHg and LA pressure 23 x 11 x 18 mm Hg. PentaRay catheter was then placed in the left atrium and electro anatomic mapping and scar mapping was performed. There appeared to be a gap in the roof line on the right side of the roof line technician to the right superior pulmonary vein. A full scar map and an activation map were performed. RF ablation was performed and with 2 RF lesions successful termination was obtained. Following that, RF ablation was done along the entire roof line and a complete line of block was made with non capture along the line. RF ablation was then performed in the yenni/septum of the left atrium. Linear ablation was performed along this line from the roof down to the right inferior pulmonary vein that had been previously isolated. This segment was then completely isolated and exit block was proven from the septum. RF ablation was then performed in the mitral isthmus area and complete RF line was performed and non capture was documented along the line. Following that, a full EP study was performed on and off Isuprel. Sinus cycle length was 673 milliseconds. HV interval 33 milliseconds. AH interval was 111 milliseconds, the NM interval 189 milliseconds, QRS 83 milliseconds and QT 352 milliseconds. VA Wenckebach block greater than 590 milliseconds. Sinus node recovery times at 600, 500 and 400 milliseconds were 849 milliseconds, 954 and 961 milliseconds. Corresponding corrected sinus node recovery times within normal limits. AV node Wenckebach block 390 milliseconds. With atrial extra stimulation and atrial tachycardia was induced. This was an Isuprel sensitive tachycardia with variations in the cycle length depending on Isuprel dose. First, the right atrium was mapped, but this was not a right atrial tachycardia. The left atrium was then accessed and mapping was performed and the tachycardia was localized. The focal tachycardia was found and was localized to the anterior left atrial wall close to the mitral anulus, 10 o'clock position. With mechanical pressure, this tachycardia would terminate only to restart once again and RF ablation was applied at the earliest site with deeply negative unipolar signals. Complete termination occurred and the tachycardia was rendered noninducible. RF ablation was applied around this site and following that high-dose Isuprel was used. An EP study was performed and the tachycardia could not be induced again. All catheters were then removed after confirming absence of any pericardial effusion on intracardiac echo. RESULT: 1. 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 RF ablation resulted in termination of this tachycardia. 2. New focal atrial tachycardia from the anterior wall of the LA close to the mitral isthmus, 10 o'clock position. Successful mapping and ablation was performed. 3. Linear ablation along the open left atrial septum. 4. Linear atrial ablation along the mitral isthmus. No other tachycardias induced at the end of the procedure. PLAN: Continue Coumadin and maintain therapeutic INRs long-term. MMODL / IJN: [id number] /
[2020-12-24] MEDS ORDERED: PANTOPRAZOLE 40 MG TABLET PO SCH (21:00)
[2020-12-24] MEDS ORDERED: PRAVASTATIN SODIUM 20 MG TAB PO SCH (21:00)
[2020-12-24] MEDS ORDERED: lisinopriL 20 MG TAB PO SCH (21:00)
[2020-12-24 22:19] LABS: Glucose,Whole Blood 138 mg/dL (75-99)
[2020-12-24] MEDS: METOPROLOL TARTRATE 50 MG TAB PO SCH (22:37)
[2020-12-24] MEDS: LACTATED RINGERS 1,000 ML IV SCH (22:38)
[2020-12-24] MEDS: DOXAZOSIN 4 MG TAB PO SCH (22:39)
[2020-12-24] MEDS: metFORMIN 500 MG TAB PO SCH (22:41)
[2020-12-25 01:32] VITALS: RESP 18
[2020-12-25] MEDS: LACTATED RINGERS 1,000 ML IV SCH (05:48)
[2020-12-25 07:07] LABS: Glucose,Whole Blood 151 mg/dL (75-99)
[2020-12-25 07:07] LABS: INR 2.6 (<1.2); Prothrombin Time 25.3 sec (9.0-12.0)
[2020-12-25 07:58] VITALS: BP 113/71; PULSE 86; TEMP 98.3
--- NOTE | 2020-12-25 08:01 | DS ---
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 Joseph and Dr. EKLLY Astudillo, who has had an atrial fibrillation ablation with PVI and linear ablation last year. He presented with atrial tachycardia with two-to-one AV block. Yesterday he underwent mapping of the right and left atria and a gap was noted in the roof line close to the right superior pulmonary vein. The two RF lesions and the tachycardia terminated and he went back to sinus rhythm. Following that, RF ablation was performed in the septum and the mitral anulus and the yenni of the left-sided veins anteriorly. Subsequently an EP study result revealed a new focal atrial tachycardia close to the mitral anulus anteriorly at the 10 o'clock position. Successful RF ablation was performed. The tachycardia terminated with RF and it was rendered noninducible. No other tachycardias were induced at EP study thereafter, on and off Isuprel and atrial stimulation. This morning, the patient is doing well. His vitals are stable. He is resting comfortably in bed. He has no pleuritic chest discomfort. No shortness of breath. No orthopnea. Heart sounds are normal. No S3 gallop. No murmurs. Lungs are clear. Abdomen is soft. Groins have healed well. Sutures are out. Urinary bladder catheter is out. Vitals are stable. PLAN: Continue all current medications including Coumadin. Discharge home by 1 p.m. after ambulating in the hallways and if he is going to remain stable. Follow up with Dr. Astudillo in 1 to 2 weeks or as previously scheduled. The results of the study were discussed with the patient. MMODL / IJN: [id number] /
[2020-12-25] MEDS: DOXAZOSIN 4 MG TAB PO SCH (08:08)
[2020-12-25] MEDS: metFORMIN 500 MG TAB PO SCH (08:08)
[2020-12-25] MEDS: METOPROLOL TARTRATE 50 MG TAB PO SCH (08:08)
[2020-12-25] MEDS ORDERED: PIOGLITAZONE 15 MG TAB PO SCH (09:00)
[2020-12-25 12:08] LABS: Glucose,Whole Blood 126 mg/dL (75-99)
[2020-12-31] MEDS ORDERED: NON FORMULARY DRUG (Semaglutide [Ozempic] 1 MG/0.75 ML Pen.Injctr) SQ SCH (09:00)
== END 2020-12-25 13:00 | disposition home or self-care (01) ==
LOC: CATHEP 11:37 → 6NMEDSUR 18:04 → CATHEP 12-25 13:00
PROVIDERS: ATTEND Internal Medicine Clinical Cardiac Electrophysiology
DX: I47.1 Supraventricular tachycardia (principal); I25.10 Atherosclerotic heart disease of native coronary artery without angina pectoris; I48.0 Paroxysmal atrial fibrillation; I10 Essential (primary) hypertension; E78.5 Hyperlipidemia, unspecified; E11.9 Type 2 diabetes mellitus without complications; Z82.49 Family history of ischemic heart disease and other diseases of the circulatory system; I08.1 Rheumatic disorders of both mitral and tricuspid valves; Z20.822 Contact with and (suspected) exposure to COVID-19; I48.3 Typical atrial flutter; Z79.01 Long term (current) use of anticoagulants; Z79.899 Other long term (current) drug therapy; G47.33 Obstructive sleep apnea (adult) (pediatric); K21.9 Gastro-esophageal reflux disease without esophagitis
CPT/HCPCS: 93623; 93662; 93613; 93653; 93655; 85610 ×2; 87635; C1769 ×4; C1894; C1730; C1731; C1759; C1732; J2250; J0330; J2720; J1644 ×3; J2710; J2001; J3010; J0131; J2370; J2704

== ENCOUNTER → 2021-12-03 | Outpatient (CLI) | payer MEDICARE ==
--- NOTE | 2021-12-03 14:28 | P.PN ---
Subjective Progress Note Date: 12/03/21 This is a 70-year-old here patient is coming in regarding his obstructive sleep apnea. The patient is a long-term CPAP user. The patient has 2 machines. He spends half of urine [place] where he uses a different machine which is set at a pressure of 12 cm of water. He is in [place], the patient has a ResMed air sense 10 which is also set at a pressure of 12 cm of water. The patient is coming in for routine check. He is known to have multiple medical problems and comorbidities. He found to have coronary artery disease and previous coronary stent 7 placed in 2000. He also has issues chronic atrial fibrillation and has undergone multiple ablations, twice in 2019 and once in 2020. Ultimately, his cardiac rhythm is switched and maintaining normal sinus rhythm. He is morbidly obese. She is currently using Ozempic and the patient has been losing weight and currently is weighing around 272 pounds which is down by about 10 pounds compared to 2019. His current CPAP machine is functional. He is utilizing the machine at a pressure of 12 cm of water. Based on a year compliancy,the patient has been averaging around 7.9 hours a CPAP use per night and his AHI is down to 0.8 and the leak fingers around 12 L per minute. He is still using the Mirage Quatro medium size fullface mask. No nighttime chest pain or shortness of breath. No nighttime palpitations. No heartburn. No headaches. No altered mentation. He is was treated for now and he has no specific complaints. His other comorbid conditions include diabetes mellitus and hypertension and coronary artery disease and history of atrial fibrillation. He has also degenerative arthritis. No other significant issues otherwise for now. His sleep is solid. Sleep quality is good. No sleep fragmentation. No significant hypersomnia and sleepiness during the day. Objective - Exam BP is 187/89, pulse is 87, respirations 18, temperature 97.2, weight is 272, height is 6 0, and a body mass index is 36.3. [place] score is at 5 obese, comfortable likely distress The patient appeared well nourished and normally developed. Vital signs as documented. Head exam is unremarkable. No scleral icterus or corneal arcus noted. Neck is without jugular venous distension, thyromegaly, or carotid bruits. the patient is a Mallampati class IV.Carotid upstrokes are brisk bilaterally. Lungs are clear to auscultation and percussion. Cardiac exam reveals the PMI to be normally sized and situated. Rhythm is regular. First and second heart sounds normal. No murmurs, rubs or gallops. Abdominal exam reveals normal bowel sounds, no masses, no organomegaly and no aortic enlargement. Extr emities are nonedematous and both femoral and pedal pulses are normal.Examination of the skin revealed no evidence of significant rashes, suspicious appearing nevi or other concerning lesions.Neurologically, the patient is awake and alert and the patient does not have any focal neurological deficit. Cranial nerves are essentially intact. Assessment and Plan Plan: obstructive sleep apnea, effectively treated with CPAP at a pressure of 12 cm of water. Treatment has remained successful over the past 3 years. As mentioned earlier, the patient has 2 different CPAP unit between here in [place]. Compliance evaluation was done today. the treatment remains successful Obesity, weight is down to 272 with a body mass index of 36.3 History of chronic atrial fibrillation, post-ablation in the patient's current cardiac rhythm is sinus Coronary artery disease with previous coronary stenting BPH Hyperlipidemia Diabetes mellitus type 2 Hypertension Plan Compliance evaluation was done Treatment with sleep apnea remains successful and the patient will be kept on the same CPAP pressure of 12 cm of water Refill supplies Encourage weight loss Rest of the comorbid conditions are all stable No need for any further adjustments. The patient will see back if she used them in follow-up.
== END ==
LOC: SLEEP 13:38
PROVIDERS: ATTEND Internal Medicine Critical Care Medicine
DX: G47.33 Obstructive sleep apnea (adult) (pediatric) (principal); E11.9 Type 2 diabetes mellitus without complications; E66.01 Morbid (severe) obesity due to excess calories; E78.5 Hyperlipidemia, unspecified; I10 Essential (primary) hypertension; I25.10 Atherosclerotic heart disease of native coronary artery without angina pectoris; I48.20 Chronic atrial fibrillation, unspecified; M19.90 Unspecified osteoarthritis, unspecified site; N40.0 Benign prostatic hyperplasia without lower urinary tract symptoms; Z68.36 Body mass index [BMI] 36.0-36.9, adult; Z95.5 Presence of coronary angioplasty implant and graft; Z99.89 Dependence on other enabling machines and devices; Z91.048 Other nonmedicinal substance allergy status